=== PATIENT | female | born 1995 | race African-American/Black ===

== ENCOUNTER 2025-03-07 02:56 | Emergency (ER) | payer MEDICAID, OTHER ==
[~2025-03-07] VITALS: Ht 165.1 cm; Wt 82.0 kg
[2025-03-07 02:59] VITALS: O2SAT 99
[2025-03-07 04:00] LABS: BASOPHILS % 0.6 % (0.0-2.0); EOSINOPHILS % 0.5 % (0.0-5.0); HEMATOCRIT. 35.6 % (36.0-48.0); HEMOGLOBIN. 11.8 g/dL (12.0-16.0); LYMPHOCYTES % 7.6 % (20.0-50.0); MEAN CORPUSCULAR HEMOGLOBIN 31.1 pg (28.0-32.0); MEAN CORPUSCULAR HGB CONC 33.1 g/dL (31.0-37.0); MEAN CORPUSCULAR VOLUME 94.1 fL (81.0-99.0); MEAN PLATELET VOLUME 8.7 fl (7.4-10.4); MONOCYTES % 3.7 % (2.0-8.0); NEUTROPHILS % 87.6 % (40.0-76.0); PLATELET 207 x1000/uL (130-400); RED BLOOD CELL COUNT 3.78 mill/uL (4.2-5.4); RED CELL DISTRIBUTION WIDTH 17.7 % (11.6-14.6); WHITE BLOOD COUNT 7.1 x1000/uL (4.5-11.0)
[2025-03-07] MEDS: MAGNESIUM/ALUMINUM HYDROXIDE/SIMETHICONE 30ML UDC PO STA (04:12)
[2025-03-07] MEDS: ACETAMINOPHEN 325MG TABLET PO ONE (04:13)
[2025-03-07] MEDS: VISCOUS LIDOCAINE 2% 15 ML UDC PO STA (04:13)
[2025-03-07] MEDS: ONDANSETRON 4MG ODT PO STA (04:13)
[2025-03-07 04:18] LABS: CHLORIDE 108 mEq/L (98-107); POTASSIUM 3.6 mEq/L (3.5-5.1); PROTHROMBIN TIME 10.7 sec (9.6-11.0); SODIUM 143 mEq/L (136-145)
[2025-03-07 04:19] LABS: CALCIUM 8.9 mg/dL (8.7-10.4); CARBON DIOXIDE 19 mEq/L (21-32)
[2025-03-07 04:24] LABS: CREATININE 0.8 mg/dL (0.6-1.0); GLUCOSE 86 mg/dL (70-105); UREA NITROGEN BLOOD 10 mg/dL (9-23)
[2025-03-07 04:26] LABS: ALANINE AMINOTRANSFERASE 36 IU/L (10-49); ALBUMIN 4.4 g/dL (3.2-4.8); ASPARTATE AMINOTRANSFERASE 100 IU/L (<34); BILIRUBIN DIRECT 0.2 mg/dL (<=3.0); BILIRUBIN TOTAL 0.6 mg/dL (0.1-1.0); PROTEIN TOTAL 6.8 g/dL (6.0-8.3)
[2025-03-07 04:35] LABS: HCG SCREEN NEGATIVE
[2025-03-07 05:23] LABS: CLARITY URINE CLEAR (CLEAR); COLOR URINE DARK YELLOW (YELLOW); GLUCOSE URINE NEGATIVE (NEGATIVE); KETONES URINE 2+ (NEGATIVE); LEUKOCYTE ESTERASE URINE NEGATIVE (NEGATIVE); NITRITE URINE POSITIVE (NEGATIVE); OCCULT BLOOD URINE NEGATIVE (NEGATIVE); PROTEIN URINE 1+ (NEGATIVE); SPECIFIC GRAVITY URINE 1.028 (1.005-1.030)
[2025-03-07 05:32] LABS: *AMPHETAMINES SCREEN URINE NEGATIVE (NEGATIVE); *BARBITURATES SCREEN URINE NEGATIVE (NEGATIVE); *BENZODIAZEPINES SCREEN URINE NEGATIVE (NEGATIVE); *COCAINE SCREEN URINE NEGATIVE (NEGATIVE)
[2025-03-07 05:33] LABS: CANNABINOID URINE SCREEN PRESUMPTIVE POSITIVE (NEGATIVE); ECSTASY MDMA SCREEN URINE NEGATIVE (NEGATIVE); METHADONE URINE SCREEN NEGATIVE (NEGATIVE); OPIATES URINE SCREEN NEGATIVE (NEGATIVE); PHENCYCLIDINE URINE SCREEN NEGATIVE (NEGATIVE)
[2025-03-07 05:34] LABS: ETHANOL BLOOD 29 mg/dL (<10)
[2025-03-07] MEDS ORDERED: CEPH500C2 MT (05:40)
[2025-03-07] MEDS ORDERED: ACET-2708 MT (05:40)
[2025-03-07] MEDS ORDERED: MAG355OR21 MT (05:40)
[2025-03-07] MEDS ORDERED: ONDA4TAB50 MT (05:40)
[2025-03-07] MEDS: HYDROCODONE/ACETAMINOPHEN 5/325MG TABLET PO ONE (05:49)
[2025-03-07 05:54] VITALS: BP 146/101; PULSE 60; RESP 16; TEMP 36.7; O2SAT 100
[2025-03-07 07:15] LABS: SQUAMOUS EPITHELIAL CELL URINE FEW /lpf (RARE/1+)
[2025-03-07 07:16] LABS: BACTERIA URINE 1+; RBC URINE 0-2 /hpf (0-2)
== END 2025-03-07 06:10 | disposition home or self-care (01) ==
LOC: ER 02:56
DX: E87.20 Acidosis, unspecified (principal); F12.10 Cannabis abuse, uncomplicated; K29.70 Gastritis, unspecified, without bleeding; F10.90 Alcohol use, unspecified, uncomplicated; Z79.899 Other long term (current) drug therapy; Y90.9 Presence of alcohol in blood, level not specified
CPT/HCPCS: 80076; 80305; 80048; 81003; 81025; 80320; 84703; 83690; 85025; 85610; 36415; 99284; Q0162; G0480